=== PATIENT | female | born 1980 | race Caucasian/White ===

== ENCOUNTER → 2020-07-27 | Outpatient (CLI) | payer BC ==
[~2020-07-27] MED LIST: AZITHROMYCIN250 MG PO
== END ==
LOC: COL.RAD 11:20
DX: Z87.440 Personal history of urinary (tract) infections (principal)

== ENCOUNTER → 2020-11-04 | Outpatient (CLI) | payer BC | LOC: MC.RAD | DX: Z12.31 Encounter for screening mammogram for malignant neoplasm of breast (principal) ==

== ENCOUNTER → 2021-12-22 | Outpatient (CLI) | payer BC | LOC: MC.RAD 07:53 | DX: Z12.31 Encounter for screening mammogram for malignant neoplasm of breast (principal); N64.9 Disorder of breast, unspecified ==

== ENCOUNTER → 2021-12-23 | Outpatient (CLI) | payer BC | LOC: MC.RAD 08:00 | DX: N63.11 Unspecified lump in the right breast, upper outer quadrant (principal) ==

== ENCOUNTER → 2023-09-20 | Outpatient (CLI) | payer BC | LOC: COL.RAD 09:08 | DX: K80.20 Calculus of gallbladder without cholecystitis without obstruction (principal); K82.8 Other specified diseases of gallbladder ==